=== PATIENT | female | born 1965 ===

== ENCOUNTER → 2020-06-29 13:07 | Outpatient (CLI) | payer OTHER, SELFPAY ==
[2020-06-29 14:56] LABS: COVID19 -Nasal RAPID Negative (Negative)
== END ==
PROVIDERS: PCP Student in an Organized Health Care Education/Training Program; Visit Provider Physician Assistant
DX: Z20.822 Contact with and (suspected) exposure to COVID-19 (principal)
CPT/HCPCS: 87635

== ENCOUNTER 2020-07-01 09:46 | Day surgery (SDC) | payer OTHER, SELFPAY ==
--- NOTE | 2020-07-01 | PATH_ITS ---
[facility] Accession Number: [id number] . 01 Material submitted: . gastrointestinal site - GASTRIC BIOPSY . 01 Clinical history: . EGD; RULE OUT H. PYLORI . 02 Diagnosis: Stomach, Biopsy: Antral mucosa with mild reactive gastropathy. No evidence of Helicobacter organisms on H/E stain. Negative for intestinal metaplasia. Negative for dysplasia and malignancy. . . I 07/03/2020 1502 Local . 02 Comment: An immunohistochemical stain will be performed to evaluate for Helicobacter organisms, and the results reported as an addendum. . 02 Electronically signed: . Zoe Yates MD, Pathologist NPI- [id number] . 01 Gross description: . GASTRIC BIOPSY: Received in formalin are 4 fragment(s) of carver, soft tissue measuring 0.1 x 0.1 x 0.1 cm to 0.3 x 0.2 x 0.2 cm submitted entirely in 1 cassette(s) /JEANNETTE 07/02/2020 1844 Local . 02 Pathologist provided ICD-10: R10.13 . 02 CPT . 285901, [id number] Performed at: 01 [facility] [address], [place], [place] [id number] MD Elijah Carreno MD Phone: [phone] Performed at: [facility] [address] [place], [place] [id number] MD Zoe Yates MD Phone: [phone]
[2020-07-01 10:11] VITALS: BMI 26.6
[2020-07-01 10:29] VITALS: BP 130/88; PULSE 73; RESP 16; TEMP 36.8; O2SAT 98; BMI 26.6
[2020-07-01] MEDS: SODIUM CHLORIDE 0.9% 1,000 ML 70 ML IV (10:30)
--- NOTE | 2020-07-01 10:56 | PM.HP.1 ---
History of Present Illness History of Present Illness Date Patient Seen: 07/01/20 Time Patient Seen: 10:50 Chief complaint: EGD Narrative: Patient is a very pleasant 54-year-old female who presented for evaluation of epigastric abdominal pain. She was evaluated by [facility] [employer] earlier this month denies any changes to her symptoms. Patient History Family & Social History Social History: household members spouse,family Tobacco & Substance use: Smoking Status Former smoker alcohol intake frequency a few times a month Substance Use Type does not use Meds Home Medications and Allergies Home Medications Medication Instructions Recorded Confirmed Type levothyroxine [Synthroid] 88 mcg PO QAM #0 tab 03/16/16 07/01/20 History atorvastatin 20 mg PO DAILY 07/01/20 07/01/20 History pantoprazole 40 mg PO BID 07/01/20 07/01/20 History Allergies Allergy/AdvReac Type Severity Reaction Status Date / Time No Known Drug Allergies Allergy Verified 07/01/20 10:06 Review of Systems Review of Systems ROS: Yes All systems reviewed with the patient and are negative except as otherwise documented Exam Vital Signs (past 8 hours): - 07/01/20 10:29 Temperature 98.3 F Pulse Rate 73 Respiratory Rate 16 Blood Pressure 130/88 Pulse Oximetry 98 Oxygen Delivery Method Room Air Const General: cooperative, healthy appearing, comfortable, well developed and well groomed Nutritional Appearance: average body habitus Orientation: alert, awake and oriented x3 HENMT Head: normocephalic and atraumatic Resp Effort & Inspection: normal respiratory effort and able to speak in complete sentences Auscultation: clear to auscultation bilaterally Cardio Rate: regular rate Rhythm: regular rhythm Heart Sounds: S1 normal and S2 normal GI Palpation: soft Auscultation: normal bowel sounds Extrem Right lower extremity: no edema Left lower extremity: no edema Assessment & Plan Assessment & Plan narrative: 1. Epigastric abdominal pain EGD today, further recommendations to follow
[2020-07-01] MEDS: fentaNYL 250 MCG/5 ML INJ IV (10:58)
[2020-07-01] MEDS: MIDAZOLAM 5 MG/5 ML VIAL IV (11:04)
[2020-07-01] MEDS: LIDOCAINE 4% SOLN 50 ML 20 ML TOP (11:10)
[2020-07-01 11:15] VITALS: BP 112/67; PULSE 64; RESP 14; TEMP 36.2; O2SAT 97
--- NOTE | 2020-07-01 11:15 | PM.OP.ENDO ---
Operative Date/Time/Diagnoses Date of procedure: 07/01/20 Time of procedure: 10:58 Procedure Notes Procedure in detail: Surgeon: Nuvia Matt DO Procedure: Esophagogastroduodenoscopy with biopsy Preoperative diagnosis: 1. Epigastric abdominal pain Postoperative diagnosis: 1. Mildly tortuous esophagus 2. Small hiatal hernia 3. Gastritis, biopsied to rule out H pylori 4. Normal-appearing duodenum Medications: Conscious sedation using 5 mg IV of Midazolam and 100 mcg IV of Fentanyl Preanesthesia Assessment An H and P was performed/updated and the Px?s ASA class is 1. The procedure was discussed in detail with the patient. The potential risks and complications including infection, bleeding, missed lesions, perforation, need for surgery in case of perforation, prolonged hospital stay, and were explained. A brief question and answer period was allotted and once all questions were answered, informed consent was obtained. The patient was brought back to the procedure room and placed on standard monitoring. The patient?s vital signs were monitored continuously throughout the entire procedure. Prior to starting, a timeout was performed to confirm the patient?s identity, allergies, medications, and procedure. Procedure in detail The patient was placed in left lateral decubitus position and a bite block was inserted. The tip of the upper endoscope was placed into the mouth and advanced without difficulty under direct visualization into the esophagus. Esophagus: Mildly tortuous esophagus Stomach: Small hiatal hernia Erythematous gastritis in the antrum and body, biopsied to rule out H pylori Duodenum: Normal appearing duodenum The patient tolerated the procedure well and will be brought back to the recovery area to be discharged once criteria are met. The total physician intraservice time was 10min. Complications There were no complications and estimated blood loss was minimal. Recommendations: Resume previous diet Continue outPx medications Follow up pathology results Office follow up as previously scheduled An emergency contact number was given to the patient for any complications related to the procedure
[2020-07-01 11:19] VITALS: BP 103/62; PULSE 66; RESP 14; O2SAT 97
[2020-07-01 11:27] VITALS: BP 112/65; PULSE 62; RESP 19; O2SAT 98
[2020-07-01 11:33] VITALS: BP 110/62; PULSE 61; RESP 19; TEMP 36.3; O2SAT 98
[2020-07-01 11:38] VITALS: BP 112/65; PULSE 60; RESP 14; TEMP 36.3; O2SAT 99
== END 2020-07-01 11:47 | disposition home or self-care (01) ==
PROVIDERS: PCP Student in an Organized Health Care Education/Training Program; Referring Provider Student in an Organized Health Care Education/Training Program; Visit Provider Student in an Organized Health Care Education/Training Program
PROC: 0DJ08ZZ Inspection of Upper Intestinal Tract, Via Natural or Artificial Opening Endoscopic (ICD-10-PCS; CPT 43235; principal; 2020-07-01 11:00)
DX: K29.50 Unspecified chronic gastritis without bleeding (principal); E03.9 Hypothyroidism, unspecified; E78.5 Hyperlipidemia, unspecified; K44.9 Diaphragmatic hernia without obstruction or gangrene
CPT/HCPCS: 43239; J2250; J3010